=== PATIENT | female | born 1935 | race Caucasian/White ===

== ENCOUNTER 2018-04-21 17:39 | Emergency (ER) | payer BC, MEDICARE ==
[2018-04-21 18:26] VITALS: TEMP 97.4
--- NOTE | 2018-04-21 19:09 | ED ---
Head Injury HPI - General Source: patient Mode of arrival: ambulatory Limitations: no limitations <Elsie Brown - Last Filed: 04/21/18 19:06> - General Source: RN notes reviewed <Camden Juarez - Last Filed: 04/21/18 20:35> - General Chief complaint: Head Injury Stated complaint: Fell/hit head leg swelling Time Seen by Provider: 04/21/18 19:01 - History of Present Illness Initial comments: 82-year-old female patient presents to the emergency department today for evaluation after expressing a fall. Patient states that she was about to step up onto a porch when she lost her balance and fell forward striking her head on the cement. Patient believes she may have blacked out for a couple of seconds. She denies any current headache, blurred vision, double vision, dizziness, weakness. States that she is having some pain to the left lower leg where she struck it on the step. She denies any numbness or tingling to the extremity. States she is able to ambulate without difficulty. Patient denies any neck pain , back pain, chest pain, shortness of breath, abdominal pain, nausea, vomiting, or difficulties with bowel movements or urination. (Elsie Brown) - Related Data Allergies/Adverse reactions: Allergies Allergy/AdvReac Type Severity Reaction Status Date / Time cephalexin [From Keflex] Allergy Unknown Verified 04/21/18 19:46 cephaloridine Allergy Unknown Verified 04/21/18 19:46 Penicillins Allergy Swelling Verified 04/21/18 19:46 Sulfa (Sulfonamide Allergy Swelling Verified 04/21/18 19:46 Antibiotics) Review of Systems ROS Other: All systems not noted in ROS Statement are negative. <Elsie Brown - Last Filed: 04/21/18 19:06> ROS Other: All systems not noted in ROS Statement are negative. <Camden Juarez - Last Filed: 04/21/18 20:35> ROS Statement: Those systems with pertinent positive or pertinent negative responses have been documented in the HPI. Past Medical History Past Medical History: Diabetes Mellitus, Hearing Disorder / Deafness, Hypertension History of Any Multi-Drug Resistant Organisms: None Reported Additional Past Surgical History / Comment(s): cochlear implant. left hip replacement Past Psychological History: No Psychological Hx Reported Smoking Status: Never smoker Past Alcohol Use History: None Reported Past Drug Use History: None Reported <Elsie Brown - Last Filed: 04/21/18 19:06> General Exam Limitations: no limitations General appearance: alert, in no apparent distress, other (Physical well- developed, well-nourished elderly female patient in no acute distress. Vital signs upon presentation are temperature 97.4F, pulse 64, respirations 18, blood pressure 125/81, pulse ox 98% on room air.) Head exam: Present: atraumatic, normocephalic, normal inspection Eye exam: Present: normal appearance, PERRL, EOMI. Absent: scleral icterus, conjunctival injection, nystagmus, periorbital swelling ENT exam: Present: normal exam, normal oropharynx, mucous membranes moist Neck exam: Present: normal inspection, full ROM, other (Nontender, no step-off, no deformity to firm midline palpation of the posterior cervical spine. Full range of motion without pain or limitation.). Absent: tenderness, meningismus Respiratory exam: Present: normal lung sounds bilaterally. Absent: respiratory distress, wheezes, rales, rhonchi, stridor Cardiovascular Exam: Present: regular rate, normal rhythm, normal heart sounds. Absent: systolic murmur, diastolic murmur, rubs, gallop, clicks GI/Abdominal exam: Present: soft, normal bowel sounds. Absent: distended, tenderness, guarding, rebound, rigid Extremities exam: Present: full ROM, tenderness (Tenderness over the left anterior huston), normal capillary refill, other (There is evidence of hematoma and small skin tear to the left anterior huston. Skin to the left lower extremity is otherwise pink, warm, and dry. Cap refills less than 3 seconds. Pedal and posttibial pulses 2+ and equal bilaterally.). Absent: normal inspection, pedal edema, joint swelling, calf tenderness Back exam: Present: normal inspection, other (Nontender, no step-off, no deformity to firm midline palpation of the thoracic and lumbar vertebrae. Full range of motion without pain or limitation.). Absent: vertebral tenderness Neurological exam: Present: alert, oriented X3, CN II-XII intact, other ( Strength in all 4 extremities is 5/5.) Psychiatric exam: Present: normal affect, normal mood Skin exam: Present: warm, dry, intact, normal color. Absent: rash <Elsie Brown - Last Filed: 04/21/18 19:06> Vital Signs 04/21/18 04/21/18 18:20 19:41 Temperature 97.4 F L Pulse Rate 64 61 Respiratory 18 16 Rate Blood Pressure 125/81 138/81 O2 Sat by Pulse 98 96 Oximetry Medical Decision Making <BushraElsie padron - Last Filed: 04/21/18 19:06> <Camden Juarez - Last Filed: 04/21/18 20:35> - Medical Decision Making 82-year-old female presented for a fall. Patient did have a head injury CT of the head and neck were obtained no acute abnormality. Patient also had a leg injury x-rays were obtained no acute fracture. Patient's tetanus is updated. Patient will be discharged with return parameters, instructions for head injury. We did discuss possibility of delayed bleed secondary to being on anticoagulants. (Camden Juarez) Disposition <Elsie Brown - Last Filed: 04/21/18 19:06> Is patient prescribed a controlled substance at d/c from ED?: No Time of Disposition: 20:35 <Camden Juarez - Last Filed: 04/21/18 20:35> Clinical Impression: Head injury, Hematoma of scalp, Contusion of leg Disposition: HOME SELF-CARE Condition: Stable Instructions: Head Injury (ED) Additional Instructions: Please return to the Emergency Department if symptoms worsen or any other concerns. Referrals: Zaria Barker MD [Primary Care Provider] - 1-2 days
[2018-04-21] MEDS ORDERED: DIPH,PERTUS(ACELL)TETVAC-LF 0.5 ML VIAL IM ONE (19:54)
--- NOTE | 2018-04-21 20:27 | CT ---
EXAMINATION TYPE: CT brain maximus rees DATE OF EXAM: 04/21/2018 COMPARISON: None HISTORY: Trip and fall with left parietal injury. CT DLP: 1254.4 mGycm Automated exposure control for dose reduction was used. TECHNIQUE: CT scan of the head and cervical spine are performed without contrast. FINDINGS: There is metal artifact from implanted at the left occipital bone. There is no mass effec t nor midline shift. There is no sign of intracranial hemorrhage. The calvarium is intact. There is c erebral cortical atrophy. Sella turcica appears normal. Cervical vertebra show some straightening. There is disc space narrowing from C3 to C7 with mild spur ring. Facet joints are intact. There is no evidence of a fracture. There is no significant subluxatio n. Skull base appears intact. 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 No fracture. Cerebral atrophy. No acute intracranial abnormality. No evidence of traumatic injury.
--- NOTE | 2018-04-21 20:28 | XR ---
EXAMINATION TYPE: XR tibia fibula LT DATE OF EXAM: 04/21/2018 COMPARISON: NONE HISTORY: Pain TECHNIQUE: 4 views FINDINGS: The tibia and fibula appear intact. I see no fracture nor dislocation. Joint spaces are neela rly normal. There is plantar and Achilles calcaneal spurring. IMPRESSION: No fracture seen.
[2018-04-21 20:46] VITALS: BP 134/70; PULSE 62; RESP 15
== END 2018-04-21 20:55 | disposition home or self-care (01) ==
LOC: EC 17:39
DX: S00.03XA Contusion of scalp, initial encounter (principal); S81.812A Laceration without foreign body, left lower leg, initial encounter; H91.90 Unspecified hearing loss, unspecified ear; Z88.0 Allergy status to penicillin; Z88.1 Allergy status to other antibiotic agents; Z88.2 Allergy status to sulfonamides; Z96.642 Presence of left artificial hip joint; Z23 Encounter for immunization; W01.0XXA Fall on same level from slipping, tripping and stumbling without subsequent striking against object, initial encounter; Y93.89 Activity, other specified
CPT/HCPCS: 70450; 72125; 90471; 90715; 99284